=== PATIENT | male | born 1990 | race Caucasian/White ===

== ENCOUNTER → 2024-04-26 | Outpatient (CLI) | payer OTHER | END | disposition home or self-care (01) | LOC: MRI 13:41 | PROVIDERS: ATTEND Nurse Practitioner Family | DX: M75.112 Incomplete rotator cuff tear or rupture of left shoulder, not specified as traumatic (principal); M75.52 Bursitis of left shoulder; M67.814 Other specified disorders of tendon, left shoulder; M25.412 Effusion, left shoulder ==